=== PATIENT | male | born 1985 | race Caucasian/White ===

== ENCOUNTER 2017-06-11 03:49 | Emergency (ER) | payer OTHER, SELFPAY ==
[~2017-06-11] VITALS: Ht 167.6 cm; Wt 108.0 kg
[2017-06-11] MEDS ORDERED: OMEP40CA2 PO (04:01)
[2017-06-11] MEDS ORDERED: NS 1,000 ML IV ONE ×2 (04:15→05:15)
[2017-06-11 04:33] LABS: BASO % 0.3 % (0.0-1.0); EOS # 0.2 K/mm3 (0.0-0.50); EOS % 1.8 % (0.0-3.0); LARGE UNSTAINED CELL # 0.1 K/mm3 (0.0-0.4); LARGE UNSTAINED CELL % 0.5 % (0.0-4.0); LYMPH # 0.9 K/mm3 (1.5-4.5); LYMPH % 8.5 % (24.0-44.0); MEAN CORPUSCULAR HEMOGLOBIN 29.8 pg (27.0-33.0); MEAN CORPUSCULAR HGB CONC 34.6 g/dl (32.0-36.5); MEAN CORPUSCULAR VOLUME 86.1 fl (80.0-96.0); MONO # 0.5 K/mm3 (0.0-0.8); MONO % 4.7 % (0.0-5.0); NEUTROPHILS # 8.3 K/mm3 (1.8-7.7); NEUTROPHILS % 84.1 % (36.0-66.0); PLATELET COUNT, AUTOMATED 221 k/mm3 (150-450); RED CELL DISTRIBUTION WIDTH 13.5 % (11.5-14.5); WHITE BLOOD COUNT 9.9 K/mm3 (4.0-10.0)
[2017-06-11 04:58] LABS: ALBUMIN 3.8 GM/DL (3.2-5.2); ALKALINE PHOSPHATASE 69 U/L (45-117); ALT/SGPT 53 U/L (12-78); AMYLASE 61 U/L (25-115); ANION GAP 9 MEQ/L (8-16); AST/SGOT 24 U/L (15-37); BILIRUBIN,DIRECT 0.2 MG/DL (0.0-0.2); BILIRUBIN,TOTAL 0.8 MG/DL (0.2-1.0); BLOOD UREA NITROGEN 17 MG/DL (7-18); CALCIUM LEVEL 8.7 MG/DL (8.5-10.1); CARBON DIOXIDE LEVEL 22 MEQ/L (21-32); CHLORIDE LEVEL 99 MEQ/L (98-107); CREATININE FOR GFR 1.14 MG/DL (0.70-1.30); GLOMERULAR FILTRATION RATE > 60.0 (>60); GLUCOSE, FASTING 105 MG/DL (70-105); POTASSIUM SERUM 3.3 MEQ/L (3.5-5.1); SODIUM LEVEL 130 MEQ/L (136-145)
[2017-06-11] MEDS ORDERED: POTASSIUM CHLORIDE 10 MEQ SR TABLET PO ONE (05:15)
[2017-06-11 05:51] VITALS: BP 138/72
== END 2017-06-11 07:09 | disposition home or self-care (01) ==
LOC: M ED 03:49
DX: K52.9 Noninfective gastroenteritis and colitis, unspecified (principal); K21.9 Gastro-esophageal reflux disease without esophagitis; Z87.891 Personal history of nicotine dependence

== ENCOUNTER 2018-03-30 20:58 | Inpatient (IN) | payer OTHER ==
[2018-03-30 22:11] LABS: BASO % 0.3 % (0.0-1.0); EOS # 0.1 10^3/uL (0.0-0.50); EOS % 0.6 % (0.0-3.0); HEMATOCRIT 42.3 % (42.0-52.0); HEMOGLOBIN 14.6 g/dl (13.5-17.5); IMMATURE GRANULOCYTE % 0.3 % (0-3.0); LYMPH # 0.5 10^3/uL (1.5-4.5); LYMPH % 6.4 % (24.0-44.0); MEAN CORPUSCULAR HEMOGLOBIN 29.1 pg (27.0-33.0); MEAN CORPUSCULAR HGB CONC 34.5 g/dl (32.0-36.5); MEAN CORPUSCULAR VOLUME 84.4 fl (80.0-96.0); MONO # 0.5 10^3/uL (0.0-0.8); MONO % 6.4 % (0.0-5.0); NEUTROPHILS # 6.7 10^3/uL (1.8-7.7); PLATELET COUNT, AUTOMATED 261 10^3/uL (150-450); RED BLOOD COUNT 5.01 10^6/uL (4.30-6.10); RED CELL DISTRIBUTION WIDTH 12.9 % (11.5-14.5); WHITE BLOOD COUNT 7.8 10^3/uL (4.0-10.0)
[2018-03-30] MEDS: NS 1,000 ML IV (22:15)
[2018-03-30] MEDS: METOCLOPRAMIDE INJ 10MG/2ML VIAL (J2765) IV (22:15)
[2018-03-30] MEDS: MORPHINE 10 MG/ML 1ML VIAL (J2270) IV (22:15)
[2018-03-30 22:40] LABS: ALBUMIN/GLOBULIN RATIO 1.05 (1.00-1.93); ALKALINE PHOSPHATASE 73 U/L (45-117); ALT/SGPT 34 U/L (12-78); ANION GAP 8 MEQ/L (8-16); AST/SGOT 17 U/L (7-37); BILIRUBIN,DIRECT 0.2 MG/DL (0.0-0.2); BILIRUBIN,TOTAL 0.5 MG/DL (0.2-1.0); BLOOD UREA NITROGEN 16 MG/DL (7-18); CALCIUM LEVEL 8.9 MG/DL (8.5-10.1); CARBON DIOXIDE LEVEL 26 MEQ/L (21-32); CHLORIDE LEVEL 103 MEQ/L (98-107); CREATININE FOR GFR 1.13 MG/DL (0.70-1.30); GLOMERULAR FILTRATION RATE > 60.0 (>60); GLUCOSE, FASTING 126 MG/DL (70-100); LIPASE 160 U/L (73-393); POTASSIUM SERUM 3.9 MEQ/L (3.5-5.1); SODIUM LEVEL 137 MEQ/L (136-145); TOTAL PROTEIN 7.8 GM/DL (6.4-8.2)
[2018-03-30] MEDS ORDERED: GASTROGRAFIN SOLUTION 30ML (Q9963) As Ordered (23:40)
[2018-03-30] MEDS: GASTROGRAFIN SOLUTION 30ML PO (23:45)
[2018-03-31] MEDS: GASTROGRAFIN SOLUTION 30ML PO (00:30)
[2018-03-31] MEDS ORDERED: ISOVUE-370 76% 100ML VIAL (Q9967) As Ordered (00:51)
[2018-03-31] MEDS: NS 1,000 ML IV (03:00)
[2018-03-31] MEDS: HYDROmorphone HCL 1 MG/ML SYRINGE (J1170) IV (03:00)
[2018-03-31] MEDS ORDERED: HYDROmorphone HCL 1 MG/ML SYRINGE (J1170) IV (03:00)
[2018-03-31] MEDS: AMPICILLIN SOD/SULBACTAM SOD 3 GM in D5W MINI-BAG PLUS 100 ML IV (03:15)
[2018-03-31] MEDS ORDERED: ROCURONIUM BROMIDE 50 MG/5 ML VIAL As Ordered (05:30)
[2018-03-31] MEDS ORDERED: fentaNYL 250 MCG/5 ML INJECTION (J3010) As Ordered (05:30)
[2018-03-31] MEDS ORDERED: ONDANSETRON 4MG/2ML VIAL (J2405) As Ordered (05:30)
[2018-03-31] MEDS ORDERED: PROPOFOL 200 MG/20 ML VIAL As Ordered (05:30)
[2018-03-31] MEDS ORDERED: MIDAZOLAM INJ 2 MG/2 ML VIAL (J2250) As Ordered (05:30)
[2018-03-31] MEDS ORDERED: dexameTHASONE 4 MG/ML 1ML VIAL (J1100) As Ordered (05:30)
[2018-03-31] MEDS ORDERED: LIDOCAINE 2% INJ 100 MG/5 ML SDV (FOR ANES.) As Ordered (05:30)
[2018-03-31] MEDS ORDERED: GLYCOPYRROLATE INJ 0.2 MG/ML 2 ML VIAL As Ordered ×2 (05:31)
[2018-03-31] MEDS ORDERED: NEOSTIGMINE 10 MG/10 ML VIAL (J2710) As Ordered (05:31)
[2018-03-31] MEDS: BUPIVACAINE HCL 0.25% 30 ML VIAL As Ordered (05:59)
[2018-03-31] MEDS: LIDOCAINE 1% SDV INJ 30 ML VIAL As Ordered (05:59)
[2018-03-31] MEDS ORDERED: MORPHINE 4 MG/ML 1ML VIAL/SYRINGE (J2270) IV (06:15)
[2018-03-31] MEDS ORDERED: ACETAMINOPHEN TAB 650MG DOSE (2X325MG) PO (06:15)
[2018-03-31] MEDS ORDERED: MOM 30ML SUSPENSION UDC PO (06:15)
[2018-03-31] MEDS ORDERED: METOCLOPRAMIDE INJ 10MG/2ML VIAL (J2765) IV (06:30)
[2018-03-31] MEDS ORDERED: fentaNYL 100 MCG/2 ML INJECTION (J3010) IV (06:30)
[2018-03-31] MEDS ORDERED: ONDANSETRON 4MG/2ML VIAL (J2405) IV (06:30)
[2018-03-31] MEDS ORDERED: MEPERIDINE INJ 25 MG/ML VIAL (J2175) IV (06:30)
[2018-03-31] MEDS: LR 1,000 ML IV ×4 (06:30→22:10)
[2018-03-31] MEDS ORDERED: PERCOCET 5MG/325MG TAB PO (06:30)
[2018-03-31] MEDS: NORCO, ANEXSIA 5/325MG TABLET (HYDROcodone/ACETAMINOPHEN) PO (07:56)
[2018-03-31] MEDS: PANTOPRAZOLE 40MG INJ (PROTONIX) (C9113) IV (09:48)
[2018-03-31] MEDS: ENOXAPARIN 40 MG/0.4 ML SYRINGE (J1650) SC (09:49)
[2018-03-31] MEDS: SENOKOT S TAB PO ×2 (09:50→22:10)
[2018-03-31 12:22] LABS: BASO % 0.1 % (0.0-1.0); HEMOGLOBIN 13.6 g/dl (13.5-17.5); IMMATURE GRANULOCYTE % 0.2 % (0-3.0); LYMPH # 0.5 10^3/uL (1.5-4.5); LYMPH % 6.5 % (24.0-44.0); MEAN CORPUSCULAR HEMOGLOBIN 29.2 pg (27.0-33.0); MEAN CORPUSCULAR VOLUME 85.8 fl (80.0-96.0); MONO # 0.4 10^3/uL (0.0-0.8); MONO % 4.8 % (0.0-5.0); NEUTROPHILS # 7.2 10^3/uL (1.8-7.7); NEUTROPHILS % 88.4 % (36.0-66.0); PLATELET COUNT, AUTOMATED 237 10^3/uL (150-450); RED BLOOD COUNT 4.66 10^6/uL (4.30-6.10); RED CELL DISTRIBUTION WIDTH 13.2 % (11.5-14.5); WHITE BLOOD COUNT 8.1 10^3/uL (4.0-10.0)
[2018-03-31 13:00] LABS: ANION GAP 8 MEQ/L (8-16); BLOOD UREA NITROGEN 14 MG/DL (7-18); CALCIUM LEVEL 8.5 MG/DL (8.5-10.1); CARBON DIOXIDE LEVEL 27 MEQ/L (21-32); CHLORIDE LEVEL 104 MEQ/L (98-107); CREATININE FOR GFR 1.01 MG/DL (0.70-1.30); GLOMERULAR FILTRATION RATE > 60.0 (>60); GLUCOSE, FASTING 140 MG/DL (70-100); SODIUM LEVEL 139 MEQ/L (136-145)
[2018-03-31] MEDS: KETOROLAC 30 MG/ML VIAL (J1885) IV ×2 (13:43→21:33)
[2018-03-31] MEDS: ALVIMOPAN 12 MG CAPSULE (ENTEREG) PO (22:10)
[2018-04-01] MEDS: KETOROLAC 30 MG/ML VIAL (J1885) IV ×2 (05:43→16:17)
[2018-04-01] MEDS: LR 1,000 ML IV (06:03)
[2018-04-01 07:29] LABS: BASO % 0.3 % (0.0-1.0); EOS # 0.1 10^3/uL (0.0-0.50); EOS % 0.9 % (0.0-3.0); HEMATOCRIT 35.6 % (42.0-52.0); IMMATURE GRANULOCYTE % 0.3 % (0-3.0); LYMPH # 1.9 10^3/uL (1.5-4.5); LYMPH % 24.3 % (24.0-44.0); MEAN CORPUSCULAR HEMOGLOBIN 29.2 pg (27.0-33.0); MEAN CORPUSCULAR HGB CONC 33.7 g/dl (32.0-36.5); MEAN CORPUSCULAR VOLUME 86.6 fl (80.0-96.0); MONO # 0.8 10^3/uL (0.0-0.8); MONO % 10.2 % (0.0-5.0); PLATELET COUNT, AUTOMATED 217 10^3/uL (150-450); RED BLOOD COUNT 4.11 10^6/uL (4.30-6.10); RED CELL DISTRIBUTION WIDTH 13.2 % (11.5-14.5); WHITE BLOOD COUNT 7.8 10^3/uL (4.0-10.0)
[2018-04-01 07:59] LABS: ANION GAP 6 MEQ/L (8-16); BLOOD UREA NITROGEN 14 MG/DL (7-18); CALCIUM LEVEL 8.1 MG/DL (8.5-10.1); CARBON DIOXIDE LEVEL 28 MEQ/L (21-32); CHLORIDE LEVEL 108 MEQ/L (98-107); CREATININE FOR GFR 0.86 MG/DL (0.70-1.30); GLOMERULAR FILTRATION RATE > 60.0 (>60); GLUCOSE, FASTING 103 MG/DL (70-100); SODIUM LEVEL 142 MEQ/L (136-145)
[2018-04-01] MEDS: ALVIMOPAN 12 MG CAPSULE (ENTEREG) PO ×2 (08:11→21:39)
[2018-04-01] MEDS: ONDANSETRON 4MG/2ML VIAL (J2405) IV (08:11)
[2018-04-01] MEDS: PANTOPRAZOLE 40MG INJ (PROTONIX) (C9113) IV (08:11)
[2018-04-01] MEDS: ENOXAPARIN 40 MG/0.4 ML SYRINGE (J1650) SC (08:11)
[2018-04-01] MEDS: SENOKOT S TAB PO ×2 (08:11→21:38)
[2018-04-02] MEDS: NORCO, ANEXSIA 5/325MG TABLET (HYDROcodone/ACETAMINOPHEN) PO ×2 (00:26→09:17)
[2018-04-02] MEDS: ENOXAPARIN 40 MG/0.4 ML SYRINGE (J1650) SC (09:17)
== END 2018-04-02 10:45 | disposition home or self-care (01) | DRG 358 ==
LOC: M SDC 03-31 04:03 → M ED 20:58 → M PED 03-31 06:36 → M SDC 03-31 06:02 → M PED 03-31 06:03
PROC: 0WJP4ZZ Inspection of Gastrointestinal Tract, Percutaneous Endoscopic Approach (ICD-10-PCS; principal; 2018-03-31 03:26)
DX: K56.609 Unspecified intestinal obstruction, unspecified as to partial versus complete obstruction (principal); K63.89 Other specified diseases of intestine; G47.33 Obstructive sleep apnea (adult) (pediatric); Z87.891 Personal history of nicotine dependence; Z79.82 Long term (current) use of aspirin; Z79.899 Other long term (current) drug therapy